=== PATIENT | female | born 1980 | race Caucasian/White ===

== ENCOUNTER 2020-01-06 21:17 | Inpatient (IN) | payer OTHER ==
[~2020-01-06] VITALS: Ht 172.7 cm; Wt 109.3 kg
[2020-01-06 21:33] VITALS: BP 125/74
--- NOTE | 2020-01-06 22:00 | NUR ---
Ok to make copy of papers from dagober[employer] pt.
[2020-01-06] MEDS ORDERED: OMEPRAZOLE40 MG PO (22:07)
[2020-01-06] MEDS ORDERED: DICYCLOMINE HCL10 MG PO (22:08)
[2020-01-06 22:09] LABS: BASO # 0.1 10*3/uL (0.0-0.1); BASO % 0.4 % (0.0-1.0); EOS # 0.3 10*3/uL (0.0-0.4); EOS % 1.4 % (1.0-4.0); HEMATOCRIT 40.1 % (37.0-47.0); LYMPH # 2.4 10*3/uL (1.3-4.4); LYMPH % 10.2 % (27.0-41.0); MEAN CELL VOLUME 78.5 fl (81.0-99.0); MEAN CORPUSCULAR HGB 23.9 pg (27.0-31.0); MEAN CORPUSCULAR HGB CONC 30.4 g/dl (33.0-37.0); MONO # 1.5 10*3/uL (0.1-1.0); MONO % 6.2 % (3.0-9.0); NEUT # 19.2 10*3/uL (2.3-7.9); NEUT % 81.3 % (47.0-73.0); PLATELET COUNT AUTOMATED 554 10*3/uL (130-400); RED BLOOD COUNT 5.11 10*6/uL (4.10-5.10); RED CELL DISTRI WIDTH 16.6 % (0-14.5); WHITE BLOOD COUNT 23.6 10*3/uL (4.8-10.8)
--- NOTE | 2020-01-06 22:18 | NUR ---
Pt to ct scan at this time.
--- NOTE | 2020-01-06 22:29 | NUR ---
Pt back from ct scan at this time.
[2020-01-06 22:30] LABS: ALBUMIN 3.3 gm/dl (3.1-4.5); ALKALINE PHOSPHATASE 106 U/L (45-117); BUN 9 mg/dl (7-24); CHLORIDE 104 mmol/L (98-107); CREATININE 0.85 mg/dL (0.55-1.02); LIPASE 69 U/L (73-393); POTASSIUM 3.6 mmol/L (3.5-5.1); SGOT/AST 4 IU/L (3-35); SGPT/ALT 25 U/L (12-78); SODIUM 135 mmol/L (136-145); TOTAL PROTEIN 8.1 gm/dL (6.4-8.2)
--- NOTE | 2020-01-06 22:31 | NUR ---
Pt states pain is much better at this time and is now down to a 3.Pt is resting comfortably in the bed at this time.
[2020-01-06 22:32] VITALS: BP 125/55
[2020-01-06 22:44] LABS: BILIRUBIN Negative (Negative); BLOOD Negative (Negative); CLARITY Clear (Clear); COLOR Yellow (Yellow); GLUCOSE Negative (Negative); KETONE Negative (Negative); LEUKO ESTERASE Trace (Negative); NITRITE Negative (Negative)
[2020-01-06 22:45] LABS: PH 8.5 (4.5-8.0)
[2020-01-06 22:52] LABS: BACTERIA 1+; RBC 0-2 rbc/hpf (0-2)
[2020-01-06 23:11] VITALS: BP 125/55
--- NOTE | 2020-01-06 23:14 | NUR ---
Kalani diaz in to see pt.
[2020-01-06 23:34] VITALS: BP 113/62
[2020-01-07] VITALS: BP 128/65
--- NOTE | 2020-01-07 | NUR ---
A 39, admitted to 4E, under the services of PRAVEEN Jacome DO with a diagnosis of DIVERTICULITIS W/PERFORATION . Chief complaint is ADB PAIN. Patient arrived via CART from ER. Monitor applied. Initial assessment completed. Vital signs taken and recorded. PRAVEEN JACOME DO notified of admission to the unit. Orders received. See assessment for past medical history, medications and allergies. Patient and/or family oriented to unit. visitation policy reviewed. Clothing/patient valuable form completed. ELIVA MENENDEZ
--- NOTE | 2020-01-07 00:57 | NUR ---
PT C/O MID ABD PAIN 08/12. MEDICATED W/MORPHINE IVP. PT REMINDED OF NPO STATUS. BLIND CLOSED PER PT REQUEST AND LIGHTS TURNED OFF. WILL MONITOR FOR EFFECTIVENESS OF PAIN MED.
--- NOTE | 2020-01-07 01:57 | NUR ---
PRN MORPHINE EFFECTIVE EVIDENCED BY PT RESTING QUIETLY IN BED AND NO C/O PAIN VOICED.
[2020-01-07 05:51] LABS: BUN 9 mg/dl (7-24); CHLORIDE 110 mmol/L (98-107); CHOLESTEROL 141 mg/dL (<200); CREATININE 0.76 mg/dL (0.55-1.02); HDL CHOLESTEROL 31 mg/dl (40-60); LDL CHOLESTEROL 94 mg/dL (9-159); POTASSIUM 3.7 mmol/L (3.5-5.1); SODIUM 138 mmol/L (136-145); TRIGLYCERIDES 79 mg/dl (<150); VLDL CHOLESTEROL 16 mg/dL (6-40)
[2020-01-07 06:12] LABS: BASO # 0.1 10*3/uL (0.0-0.1); BASO % 0.4 % (0.0-1.0); EOS # 0.2 10*3/uL (0.0-0.4); EOS % 1.4 % (1.0-4.0); HEMATOCRIT 35.6 % (37.0-47.0); LYMPH # 3.1 10*3/uL (1.3-4.4); LYMPH % 18.7 % (27.0-41.0); MEAN CORPUSCULAR HGB 23.8 pg (27.0-31.0); MEAN CORPUSCULAR HGB CONC 29.8 g/dl (33.0-37.0); MEAN PLATELET VOLUME 9.4 fl (9.6-12.3); MONO # 0.9 10*3/uL (0.1-1.0); MONO % 5.7 % (3.0-9.0); NEUT % 73.4 % (47.0-73.0); PLATELET COUNT AUTOMATED 463 10*3/uL (130-400); RED BLOOD COUNT 4.45 10*6/uL (4.10-5.10); RED CELL DISTRI WIDTH 16.6 % (0-14.5); WHITE BLOOD COUNT 16.3 10*3/uL (4.8-10.8)
--- NOTE | 2020-01-07 06:47 | NUR ---
DR GRADY NOTIFIED OF CONSULT.
[2020-01-07 08:00] VITALS: BP 105/57
--- NOTE | 2020-01-07 08:55 | NUR ---
MEDCATED WITH MORPHINE 2MG IV FOR COMPLAINTS OF ALL OVER ABDOMINAL PAIN. RATES PAIN A 4 ON A PAIN SCALE OF 1-10
--- NOTE | 2020-01-07 09:30 | NUR ---
VOICES THAT MORPHINE WAS EFFECTIVE FOR PAIN
[2020-01-07 12:00] VITALS: BP 94/51
--- NOTE | 2020-01-07 12:44 | NUR ---
MEDICATED WITH DILAUDID 0.5MG IV FOR COMPLAINTS OF ABDOMINAL PAIN. RATES PAIN A 5 ON A PAIN SCALE OF 1-10
--- NOTE | 2020-01-07 14:46 | NUR ---
MEDICATD WITH MORPHINE 2MG IV FOR COMPLAINTS OF LOWER ABDOMINAL PAIN. RATES PAIN A 5 ON A PAIN SCALE OF 1-10
[2020-01-07 16:00] VITALS: BP 127/77
--- NOTE | 2020-01-07 16:27 | NUR ---
DR. JEWELL NOTIFIED THAT MORPHINE IS NOT HOLDING PATIENT FOR PAIN. VOICES THAT PAIN IS STILL A 5 IN ABDOMEN.
--- NOTE | 2020-01-07 16:53 | NUR ---
MEDICATED WITH DILAUDID 1MG IV FOR COMPLAINTS OF PAIN IN LOWER ABDOMEN. RATES PAIN A 6 ON A PAIN SCALE OF 1-10
--- NOTE | 2020-01-07 17:45 | NUR ---
VOICES THAT DILAUDID WAS EFFECTIVE FOR PAIN
--- NOTE | 2020-01-07 19:56 | NUR ---
IV MORPHINE GIVEN FOR C/O PAIN IN LOWER ABDOMEN RATED 7/10. WILL MONITOR EFFECTIVENESS. CALL LIGHT IN REACH.
[2020-01-07 20:00] VITALS: BP 128/59
--- NOTE | 2020-01-07 20:45 | NUR ---
EARLIER MORPHINE APPEARS EFFECTIVE. PT ASLEEP IN BED. RESPIRATIONS EASY. NO S/S OF DISTRESS NOTED. WILL MONITOR. CALL LIGHT IN REACH.
--- NOTE | 2020-01-07 22:22 | NUR ---
SCHEDULED IV DILAUDID GIVEN PER ONE TIME ORDER. PT RATING PAIN IN LOWER ABDOMEN 5/10. WILL MONITOR EFFECTIVENESS. CALL LIGHT IN REACH.
--- NOTE | 2020-01-07 23:15 | NUR ---
EARLIER MEDS APPEAR EFFECTIVE. PT RESTING IN BED. NO S/S OF DISTRESS NOTED. WILL MONITOR. CALL LIGHT IN REACH.
[2020-01-08] VITALS: BP 127/62
--- NOTE | 2020-01-08 04:02 | NUR ---
PT ASLEEP IN BED. RESPIRATIONS EASY. NO S/S OF DISTRESS NOTED. WILL MONITOR. CALL LIGHT IN REACH.
[2020-01-08 06:16] LABS: BASO # 0.1 10*3/uL (0.0-0.1); BASO % 0.4 % (0.0-1.0); EOS # 0.3 10*3/uL (0.0-0.4); EOS % 2.6 % (1.0-4.0); HEMATOCRIT 32.2 % (37.0-47.0); LYMPH % 15.5 % (27.0-41.0); MEAN CELL VOLUME 80.1 fl (81.0-99.0); MEAN CORPUSCULAR HGB 23.9 pg (27.0-31.0); MEAN CORPUSCULAR HGB CONC 29.8 g/dl (33.0-37.0); MEAN PLATELET VOLUME 9.2 fl (9.6-12.3); MONO # 0.8 10*3/uL (0.1-1.0); NEUT # 9.5 10*3/uL (2.3-7.9); NEUT % 75.1 % (47.0-73.0); PLATELET COUNT AUTOMATED 418 10*3/uL (130-400); RED BLOOD COUNT 4.02 10*6/uL (4.10-5.10); RED CELL DISTRI WIDTH 16.5 % (0-14.5); WHITE BLOOD COUNT 12.6 10*3/uL (4.8-10.8)
[2020-01-08 06:23] LABS: BUN 7 mg/dl (7-24); CHLORIDE 110 mmol/L (98-107); POTASSIUM 3.5 mmol/L (3.5-5.1); SODIUM 136 mmol/L (136-145)
--- NOTE | 2020-01-08 07:00 | NUR ---
ARRIVED ON SHIFT, REPORT RECEIVED FROM OFFGOING NURSE, ASSUMED CARE OF PATIENT.
--- NOTE | 2020-01-08 07:30 | NUR ---
INTRODUCED SELF TO PATIENT BED IN LOW POSITION, WHEEL LOCKS ENGAGED, SIDE RAILS UP X 2 FOR TURNING AND REPOSSITIONING, CALL LIGHT WITHIN REACH, NO NEEDS VOICED AT THIS TIME, [place] BOARD UPDATED.
[2020-01-08 08:00] VITALS: BP 133/77
--- NOTE | 2020-01-08 09:00 | NUR ---
Fire Captain Marine in to talk to patient. Patient states lives at home with and grown children. There are no steps in the home. Physician: alan gallardo Pharmacy: [facility] Home health services: none Patient's level of ADLs: INDEPENDENT Patient has working utilities: all working DME: no Follow-up physician's appointment after d/c: will be made by hospitalist nurse director upon discharge Does patient want to access PORTAL?: n Discharge plan discussed with patient, she states she lives at home with and grown children. she states she is independent in adls and ambulation. she will return home when discharged and denies any home needs. case management will follow. TONYA VÁSQUEZ
--- NOTE | 2020-01-08 10:21 | NUR ---
PATIENT C/O ABDOMINAL PAIN RATES PAIN7/10 MEDICATED WITH PRN MORPHINE ORDERED/
--- NOTE | 2020-01-08 11:20 | NUR ---
PATIENT REPORTS GOOD RELIEF FROM 3MG MORPHINE GIVEN X 1 HOUR AGO RATES PAIN 2/10
[2020-01-08 12:00] VITALS: BP 131/74
--- NOTE | 2020-01-08 13:31 | NUR ---
IN TO SEE PATIENT, SHE REPORTED HER PAIN IS WORSENING AND NOW IS IN UPPER ABD. CALL PLACED TO HOSPITALIST LINE, SPOKE WITH DR. MCLAUGHLIN, ADVISED OF PAIN AND IT BEING TO EARLY FOR NEXT DOSE, PATIENT IS NPO, PER . PATIENT IS GOING TO BE TRANSFERED TO [place] WHEN ARAGNEMENTS CAN BE MADE.
--- NOTE | 2020-01-08 14:26 | NUR ---
PATIENT C/O ABDOMINAL PAIN 12/13 MEDICATED WITH MORPHINE 3MG IV, UPDATED ON PLAN TO TRANSFER TO [place] [facility] UPDATED
--- NOTE | 2020-01-08 15:20 | NUR ---
PATIENT REPORTS GOOD RELIEF FROM MORPHINE GIVEN X 1 HOUR AGO PAIN CURRENTLY 06/12
[2020-01-08 16:00] VITALS: BP 135/75
--- NOTE | 2020-01-08 18:28 | NUR ---
CALL PLACED TO [facility], SPOKE WITH KATHI Ashraf RN, FOR NURSE TO NURSE REPORT, REVIEWED PATIENTS STAY, MEDICATIONS AND REASON FOR TRANSPORT, ADVISED I DO NOT CURRENTLY HAVE TIME OF TRANSFER.
--- NOTE | 2020-01-08 18:35 | NUR ---
PATIENT C/O OF ABDOMINAL PAIN RATES PAIN 7/10 AND ACHING MEDICATED WITH MORPHINE ORDERED PRN.
--- NOTE | 2020-01-08 19:55 | NUR ---
THIS RN SPOKE TO SALOME AT [facility]. STATES PT DOES HAVE A ROOM. ROOM 605 BED 2. AWARE THAT [facility] HERE TO TAKE PATIENT NOW. NUMBER TO [facility] IS [phone]. PT TAKEN OFF FLOOR VIA [facility]. [facility] AWARE OF ROOM NUMBER. ALL PT BELONGINGS GATHERED AND SENT WITH PATIENT. IV SITE IN L HAND REMAINS INTACT. FLUIDS COMPLETE AT THIS TIME. PT'S RAVEN NOTIFIED OF PATIENT'S DEPARTURE AND ROOM NUMBER 605 BED 2, 'S PHONE NUMBER IS [phone].
== END 2020-01-08 21:12 | disposition other institution (70) | DRG 872 ==
LOC: ED 21:17 → EDHOLD 23:21 → 4E 23:21
PROVIDERS: Internal Medicine; Physician Assistant; ADMIT Student in an Organized Health Care Education/Training Program; ATTEND Student in an Organized Health Care Education/Training Program
DX: A41.9 Sepsis, unspecified organism (principal); K57.20 Diverticulitis of large intestine with perforation and abscess without bleeding; E87.1 Hypo-osmolality and hyponatremia; E66.9 Obesity, unspecified; K21.9 Gastro-esophageal reflux disease without esophagitis; E55.9 Vitamin D deficiency, unspecified; G47.00 Insomnia, unspecified; G47.33 Obstructive sleep apnea (adult) (pediatric); D50.9 Iron deficiency anemia, unspecified; D47.3 Essential (hemorrhagic) thrombocythemia; F17.210 Nicotine dependence, cigarettes, uncomplicated; Z82.49 Family history of ischemic heart disease and other diseases of the circulatory system; Z80.0 Family history of malignant neoplasm of digestive organs; Z88.1 Allergy status to other antibiotic agents; Z88.8 Allergy status to other drugs, medicaments and biological substances; Z79.899 Other long term (current) drug therapy; Z71.6 Tobacco abuse counseling; Z68.36 Body mass index [BMI] 36.0-36.9, adult; Z98.891 History of uterine scar from previous surgery; Z98.51 Tubal ligation status

== ENCOUNTER 2020-12-23 17:23 | Emergency (ER) | payer OTHER ==
[~2020-12-23] VITALS: Ht 172.7 cm; Wt 108.9 kg
[~2020-12-23 17:23] MED LIST: DICYCLOMINE HCL10 MG PO; OMEPRAZOLE40 MG PO
[2020-12-23] MEDS ORDERED: PREDNISONE20 M1 PO (22:29)
[2020-12-23] MEDS ORDERED: CYCLOBENZAPRINE5 M3 PO (22:29)
== END 2020-12-23 22:31 | disposition home or self-care (01) ==
LOC: ED 17:23
DX: S39.012A Strain of muscle, fascia and tendon of lower back, initial encounter (principal); F17.210 Nicotine dependence, cigarettes, uncomplicated; Z88.1 Allergy status to other antibiotic agents; Z91.018 Allergy to other foods; Z79.899 Other long term (current) drug therapy; X50.0XXA Overexertion from strenuous movement or load, initial encounter; Y93.89 Activity, other specified; Y92.89 Other specified places as the place of occurrence of the external cause; Y99.8 Other external cause status